=== PATIENT | female | born 1980 | race Caucasian/White ===

== ENCOUNTER → 2018-06-20 | Outpatient (CLI) | payer OTHER ==
[~2018-06-20] MED LIST: Amoxicillin500 MG PO; CEPH500 PO; CODGUAEL PO; HYDACE5 PO; Keflex500 MG PO; METH10 PO; NAPR500 PO; Percocet 5-3251 EACH PO; SUBOXONE 8 MG-1 EACH SL
== END ==
LOC: LAB 17:02 → LAB SHORT 17:02
DX: N39.0 Urinary tract infection, site not specified (principal)
CPT/HCPCS: 87086

== ENCOUNTER → 2018-09-04 | Outpatient (CLI) | payer OTHER | END | disposition home or self-care (01) | LOC: LAB 18:02 → LAB SHORT 18:02 | DX: Z51.81 Encounter for therapeutic drug level monitoring (principal); Z79.899 Other long term (current) drug therapy | CPT/HCPCS: G0480 ==

== ENCOUNTER 2018-10-07 12:04 | Emergency (ER) | payer OTHER ==
[~2018-10-07] VITALS: Ht 167.6 cm; Wt 59.0 kg
[2018-10-07] MEDS ORDERED: SUBOXONE 8 MG-1 EACH SL (12:10)
== END 2018-10-07 12:48 | disposition home or self-care (01) ==
LOC: ER 12:04
DX: M77.9 Enthesopathy, unspecified (principal); F17.210 Nicotine dependence, cigarettes, uncomplicated; Z79.899 Other long term (current) drug therapy
CPT/HCPCS: 29125; 73110; 99283-25; L3917

== ENCOUNTER 2018-11-28 19:43 | Emergency (ER) | payer OTHER ==
[~2018-11-28] VITALS: Ht 165.1 cm; Wt 63.5 kg
[2018-11-28] MEDS ORDERED: Augmentin 875-1 EACH PO (20:19)
== END 2018-11-28 20:24 | disposition home or self-care (01) ==
LOC: ER 19:43
DX: J32.9 Chronic sinusitis, unspecified (principal); K04.7 Periapical abscess without sinus; F17.210 Nicotine dependence, cigarettes, uncomplicated
CPT/HCPCS: 99282

== ENCOUNTER 2020-03-08 07:11 | Emergency (ER) | payer OTHER ==
[~2020-03-08] VITALS: Ht 167.6 cm; Wt 59.0 kg
[~2020-03-08 07:11] MED LIST changes: +Augmentin 875-1 EACH PO
[2020-03-08 08:26] LABS: Source, Urine Voided
[2020-03-08 08:29] LABS: Blood, Urine 4+ (Neg); Glucose Qualitative, Urine Neg (Neg); Ketones, Urine 3+ (Neg); Leukocyte Esterase, Urine 3+ (Neg); Nitrite, Urine Pos (Neg); Protein, Urine 4+ (Neg); Urobilinogen, Urine 3+ (Normal)
[2020-03-08 08:30] LABS: Appearance, Urine Turbid (Clear); Bilirubin, Urine 3+ (Neg); Color, Urine Yellow (P-Yellow)
[2020-03-08 08:33] LABS: Bacteria Mod /hpf; Squamous Epithelial Cells Mod /hpf (Few); White Blood Cells, Urine TNTC /hpf (0-5)
[2020-03-08 08:48] LABS: BASOPHILS ABSOLUTE AUTO 0.07 K/mm3 (0.00-0.23); BASOPHILS PERCENT AUTO 0 % (0-2); EOSINOPHILS ABSOLUTE AUTO 0.04 K/mm3 (0.00-0.68); EOSINOPHILS PERCENT AUTO 0 % (0-6); Hematocrit 39.4 % (33.0-51.0); Hemoglobin 12.9 g/dL (11.5-16.0); IMMATURE GRAN ABSOLUTE AUTO 0.13 K/mm3 (0.00-0.10); IMMATURE GRAN PERCENT AUTO 1 % (0-1); LYMPHOCYTES ABSOLUTE AUTO 0.84 K/mm3 (0.84-5.20); LYMPHOCYTES PERCENT AUTO 4 % (21-46); MONOCYTES ABSOLUTE AUTO 2.34 K/mm3 (0.16-1.47); MONOCYTES PERCENT AUTO 10 % (4-13); Mean Corpuscular HGB 29.3 pg (26.0-34.0); Mean Corpuscular HGB Conc 32.7 g/dL (31.5-36.5); Mean Corpuscular Volume 89 fL (80-100); Mean Platelet Volume 8.5 fL (9.1-12.4); NEUTROPHILS ABSOLUTE AUTO 19.97 K/mm3 (1.96-9.15); NEUTROPHILS PERCENT AUTO 85 % (41-73); Platelet Count 273 K/mm3 (150-400); RDW Coefficient Variation 12.4 % (11.7-14.2); RDW Standard Deviation 40.8 fL (35.1-46.3); Red Blood Cell Count 4.41 M/mm3 (3.80-5.20); White Blood Cell Count 23.39 K/mm3 (4.00-11.30)
[2020-03-08 09:09] LABS: Alanine Aminotransfer (ALT/SGP 117 U/L (12-78); Albumin, Blood 3.1 g/dL (3.4-5.0); Albumin/Globulin Ratio 0.8 (0.8-1.8); Alk Phos 97 U/L (50-136); Anion Gap 6 mmol/L (6-16); Aspartate Aminotrans (AST/SGOT 100 U/L (12-37); Bilirubin, Total 1.3 mg/dL (0.1-1.0); Blood Urea Nitrogen 11 mg/dL (8-24); Bun/Creatinine Ratio 10.7 (12.0-20.0); CO2, Blood 25 mmol/L (21-32); Calcium, Blood 8.2 mg/dL (8.5-10.1); Chloride, Blood 104 mmol/L (98-108); Creatinine, Blood 1.03 mg/dL (0.40-1.00); Globulin, Blood 3.9 g/dL (2.2-4.0); Glomerular Filtration Rate >60 (60-); Glucose, Blood 111 mg/dL (70-99); Potassium, Blood 3.3 mmol/L (3.5-5.5); Sodium, Blood 135 mmol/L (136-145)
[2020-03-08] MEDS ORDERED: ONDA4 PO (09:30)
[2020-03-08] MEDS ORDERED: IBUP600 PO (09:30)
[2020-03-08] MEDS ORDERED: KEFLEX500 MG PO (09:30)
== END 2020-03-08 09:51 | disposition home or self-care (01) ==
LOC: ER 07:11
PROVIDERS: Emergency Medicine
DX: N12 Tubulo-interstitial nephritis, not specified as acute or chronic (principal)
CPT/HCPCS: 36415; 80053; 81001; 83690; 85025; 87077; 87086; 87186; 96365; 96375; 99284-25; J0696; J1885; J7030

== ENCOUNTER 2020-10-23 11:19 | Emergency (ER) | payer OTHER ==
[~2020-10-23] VITALS: Ht 167.6 cm; Wt 68.0 kg
[~2020-10-23 11:19] MED LIST changes: +IBUP600 PO; +KEFLEX500 MG PO; +ONDA4 PO
== END 2020-10-23 12:55 | disposition home or self-care (01) ==
LOC: ER 11:19
DX: S83.412A Sprain of medial collateral ligament of left knee, initial encounter (principal); F17.210 Nicotine dependence, cigarettes, uncomplicated; W17.81XA Fall down embankment (hill), initial encounter; S29.012A Strain of muscle and tendon of back wall of thorax, initial encounter
CPT/HCPCS: 73562-LT; 99283-25

== ENCOUNTER 2021-02-20 18:23 | Emergency (ER) | payer OTHER ==
[~2021-02-20] VITALS: Ht 167.6 cm; Wt 72.6 kg
== END 2021-02-20 21:41 | disposition left against medical advice (07) ==
LOC: ER 18:23
DX: T14.8XXA Other injury of unspecified body region, initial encounter (principal); Z53.20 Procedure and treatment not carried out because of patient's decision for unspecified reasons; W26.8XXA Contact with other sharp object(s), not elsewhere classified, initial encounter
CPT/HCPCS: 99282

== ENCOUNTER 2021-03-10 14:41 | Emergency (ER) | payer OTHER ==
[~2021-03-10] VITALS: Ht 167.6 cm; Wt 77.1 kg
== END 2021-03-10 17:02 | disposition home or self-care (01) ==
LOC: ER 14:41
DX: M79.671 Pain in right foot (principal); F17.210 Nicotine dependence, cigarettes, uncomplicated
CPT/HCPCS: 73630; 99283-25

== ENCOUNTER 2021-03-15 17:00 | Emergency (ER) | payer OTHER ==
[~2021-03-15] VITALS: Ht 167.6 cm; Wt 72.6 kg
[2021-03-15] MEDS ORDERED: CEPH500 PO (19:14)
== END 2021-03-15 19:21 | disposition home or self-care (01) ==
LOC: ER 17:00
DX: L03.115 Cellulitis of right lower limb (principal); F17.210 Nicotine dependence, cigarettes, uncomplicated
CPT/HCPCS: 73630; 93971; 99284-25; A9270

== ENCOUNTER 2021-03-28 10:39 | Emergency (ER) | payer OTHER ==
[~2021-03-28] VITALS: Ht 167.6 cm; Wt 72.6 kg
[2021-03-28] MEDS ORDERED: ONDA4ODT MM (10:56)
[2021-03-28] MEDS ORDERED: Bactrim Ds Tab1 EACH PO (10:56)
== END 2021-03-28 11:00 | disposition home or self-care (01) ==
LOC: ER 10:39
DX: L03.115 Cellulitis of right lower limb (principal); F17.210 Nicotine dependence, cigarettes, uncomplicated
CPT/HCPCS: 99282

== ENCOUNTER 2021-08-16 02:08 | Emergency (ER) | payer OTHER ==
[~2021-08-16 02:08] MED LIST changes: +Bactrim Ds Tab1 EACH PO; +ONDA4ODT MM
== END 2021-08-17 03:01 | disposition home or self-care (01) ==
LOC: ER 02:08
DX: R30.0 Dysuria (principal); R35.0 Frequency of micturition; F17.210 Nicotine dependence, cigarettes, uncomplicated

== ENCOUNTER 2021-10-02 23:39 | Emergency (ER) | payer OTHER ==
[~2021-10-02] VITALS: Ht 167.6 cm; Wt 74.8 kg
[2021-10-03] MEDS ORDERED: BACTRIM DS TAB1 EAC1 PO (01:10)
== END 2021-10-03 01:10 | disposition home or self-care (01) ==
LOC: ER 23:39
DX: L03.116 Cellulitis of left lower limb (principal); F17.210 Nicotine dependence, cigarettes, uncomplicated
CPT/HCPCS: 73630